=== PATIENT | female | born 1950 | race Caucasian/White ===

== ENCOUNTER 2024-11-18 12:18 | Emergency (ER) | payer MEDICARE, OTHER ==
[~2024-11-18] VITALS: Ht 157.5 cm; Wt 54.4 kg
[2024-11-18 14:28] VITALS: BP 116/85; PULSE 70; RESP 18; TEMP 98.1; O2SAT 97
[2024-11-18] MEDS ORDERED: ATOR20TA PO (14:37)
[2024-11-18] MEDS ORDERED: GABA-1216 PO (14:37)
[2024-11-18] MEDS ORDERED: APIX2.5T PO (14:37)
[2024-11-18] MEDS ORDERED: CITA-144 PO (14:37)
[2024-11-18] MEDS: DiphenhydrAMINE HCL 25 MG CAPSULE PO ONE (15:46)
[2024-11-18] MEDS: ACETAMINOPHEN 500 MG TABLET PO ONE (15:46)
[2024-11-18] MEDS ORDERED: DIPH-1243 PO (16:40)
== END 2024-11-18 18:18 | disposition home or self-care (01) ==
LOC: EMS 12:22
DX: L30.9 Dermatitis, unspecified (principal); I69.30 Unspecified sequelae of cerebral infarction; E78.00 Pure hypercholesterolemia, unspecified; Z79.01 Long term (current) use of anticoagulants; Z79.899 Other long term (current) drug therapy
CPT/HCPCS: 99283

== ENCOUNTER 2024-12-02 10:35 | Emergency (ER) | payer MEDICARE, OTHER ==
[~2024-12-02] VITALS: Ht 162.6 cm; Wt 54.7 kg
[~2024-12-02 10:35] MED LIST: APIX2.5T PO; ATOR20TA PO; CITA-144 PO; DIPH-1243 PO; GABA-1216 PO
[2024-12-02 11:44] VITALS: TEMP 97.7
[2024-12-02] MEDS: DIPHENOXYLATE/ATROP 2.5-0.025 MG TABLET PO ONE (13:06)
[2024-12-02] MEDS: SODIUM CHLORIDE 0.9% 500 ML IV ONE (13:07)
[2024-12-02] MEDS: ONDANSETRON HCL 4 MG/2 ML VIAL IVP ONE (13:13)
[2024-12-02 13:31] LABS: ANION GAP 8 mmol/L (8-16); CALCIUM, TOTAL 8.7 mg/dL (8.8-10.5); CARBON DIOXIDE 27 mmol/L (22-29); CHLORIDE 108 mmol/L (98-107); CREATININE 0.82 mg/dL (0.60-1.30); GLOMERULAR FILTR. RATE CALC > 60 mL/min (>60); GLUCOSE,RANDOM 95 mg/dL (70-110); SODIUM SERUM 143 mmol/L (136-145); UREA NITROGEN, BLOOD 11 mg/dL (7-18)
[2024-12-02 13:32] LABS: BASOPHILS % (AUTO) 0.6 % (0.0-2.0); EOSINOPHILS % (AUTO) 0.8 % (1.0-6.0); HEMATOCRIT 41.4 % (36-46); HEMOGLOBIN 13.5 g/dL (12.0-16.0); LYMPHOCYTES # (AUTO) 0.8 K/uL (1.0-4.8); LYMPHOCYTES % (AUTO) 12.6 % (22.0-44.0); MEAN CORPUSCULAR HEMOGLOBIN 31.1 pg (26.0-34.0); MEAN CORPUSCULAR HGB CONC 32.7 G/dL (31.0-37.0); MEAN CORPUSCULAR VOLUME 95 fL (80-100); MONOCYTES # (AUTO) 0.5 K/uL (0.1-1.0); MONOCYTES % (AUTO) 6.8 % (2.0-9.0); NEUTROPHILS # (AUTO) 5.3 K/uL (1.8-7.7); NEUTROPHILS % (AUTO) 79.2 % (40.0-70.0); PLATELET COUNT (AUTO) 247 K/uL (150-450); RED BLOOD CELL COUNT(AUTO) 4.35 MIL/uL (4.00-5.20); RED CELL DISTRIBUTION WIDTH 13.7 % (11.5-14.5); WHITE BLOOD COUNT (AUTO) 6.7 K/uL (4.5-11.0)
[2024-12-02 13:38] VITALS: BP 132/78; PULSE 98; RESP 18; O2SAT 98
== END 2024-12-02 15:36 | disposition home or self-care (01) ==
LOC: EMS 10:38
DX: R19.7 Diarrhea, unspecified (principal); R11.2 Nausea with vomiting, unspecified; F03.90 Unspecified dementia, unspecified severity, without behavioral disturbance, psychotic disturbance, mood disturbance, and anxiety; E78.00 Pure hypercholesterolemia, unspecified; I10 Essential (primary) hypertension; I48.91 Unspecified atrial fibrillation; Z79.01 Long term (current) use of anticoagulants; Z79.899 Other long term (current) drug therapy; Z86.73 Personal history of transient ischemic attack (TIA), and cerebral infarction without residual deficits
CPT/HCPCS: 99283; 96374; 80048; 85025; 36415; J2405; J7040